=== PATIENT | male | born 2000 | race African-American/Black ===

== ENCOUNTER 2021-08-25 12:06 | Observation (INO) ==
[2021-08-25] MEDS ORDERED: KETOROLAC 30 MG/1 ML VIAL IV STA (14:29)
[2021-08-25 14:35] LABS: Basophils % 0.4 % (0.0-0.8); Eosinophils # 0.2 10*3/uL (0.0-0.87); Eosinophils % 2.8 % (0.00-10.9); Hematocrit 48.7 VOL% (42.0-52.0); Hemoglobin 15.6 GM/DL (14.0-18.0); Immature Granulocytes % 0.3 %; Immature Granulocytes Absolute 0.02 #; Lymphocytes # 1.9 10*3/uL (1.4-4.0); Lymphocytes % 26.9 % (21.2-54.2); Mean Corpuscular Volume 85.9 FL (87-102); Mean Platelet Volume 10.4 FL (9.6-12.0); Monocytes % 6.2 % (1.7-12.7); Neutrophils % 63.4 % (38.7-73.9); Platelet Count 223 T/CUMM (130-400); Red Blood Count 5.67 MC/CUMM (3.8-5.5); Red Cell Distribution Width 13.9 % (9.3-17.3); White Blood Count 7.2 T/CUMM (4-12)
[2021-08-25 15:00] LABS: Albumin 4.3 G/DL (3.4-5.0); Bilirubin,Total 0.4 MG/DL (0.20-1.00); Calcium 9.7 MG/DL (8.5-10.1); Osmolality,Calculated 270.1 MOS/KG (273-304); Potassium 3.8 MMOL/L (3.5-5.1); Total Protein 9.2 G/DL (6.4-8.2)
[2021-08-25 15:41] LABS: Sedimentation Rate-Westergren 12 MM/HR (0-15)
[2021-08-25] MEDS ORDERED: ACETAMINOPHEN 325 MG TABLET PO PRN (16:02)
[2021-08-25] MEDS ORDERED: ONDANSETRON 4 MG/2 ML VIAL IV PRN (16:02)
[2021-08-25] MEDS ORDERED: VANCOMYCIN INJ 1,250 MG in SODIUM CHLORIDE 0.9% 500 ML IV SCH (16:30)
[2021-08-25] MEDS: PIPERACILLIN/TAZOBACTAM 3,375 MG in SODIUM CHLORIDE 0.9% 100 ML IV SCH (17:37)
[2021-08-25] MEDS: PANTOPRAZOLE 40 MG TABLET PO SCH (20:27)
[2021-08-25] MEDS: VANCOMYCIN INJ 1,250 MG in SODIUM CHLORIDE 0.9% 250 ML IV SCH (21:39)
[2021-08-25] MEDS: KETOROLAC 30 MG/1 ML VIAL IV PRN (23:25)
[2021-08-26] MEDS: PIPERACILLIN/TAZOBACTAM 3,375 MG in SODIUM CHLORIDE 0.9% 100 ML IV SCH ×3 (00:44→18:29)
[2021-08-26] MEDS: KETOROLAC 30 MG/1 ML VIAL IV PRN (08:10)
[2021-08-26] MEDS: PANTOPRAZOLE 40 MG TABLET PO SCH (08:30)
[2021-08-26] MEDS ORDERED: LIDOCAINE 2% 5 ML VIAL ONE (08:46)
[2021-08-26] MEDS ORDERED: DEXMEDETOMIDINE 200 MCG/2 ML VIAL ONE (08:46)
[2021-08-26] MEDS ORDERED: SEVOFLURANE 1 UNIT/15 MINUTE INH ONE (08:46)
[2021-08-26] MEDS ORDERED: propofoL 200 MG/20 ML VIAL IV ONE (08:46)
[2021-08-26] MEDS ORDERED: fentaNYL 100 MCG/2 ML VIAL ONE (08:46)
[2021-08-26] MEDS ORDERED: ACETAMINOPHEN INJ 1,000 MG/100 ML VIAL IV ONE (08:47)
[2021-08-26] MEDS ORDERED: LACTATED RINGERS 1,000 ML IV ONE (08:54)
[2021-08-26] MEDS ORDERED: GLYCOPYRROLATE 0.4 MG/2 ML VIAL ONE (09:50)
[2021-08-26] MEDS ORDERED: ONDANSETRON 4 MG/2 ML VIAL ONE (10:17)
[2021-08-26] MEDS: VANCOMYCIN INJ 1,250 MG in SODIUM CHLORIDE 0.9% 250 ML IV SCH ×2 (12:00→22:08)
[2021-08-27] MEDS: PIPERACILLIN/TAZOBACTAM 3,375 MG in SODIUM CHLORIDE 0.9% 100 ML IV SCH ×2 (00:43→09:30)
[2021-08-27] MEDS: KETOROLAC 30 MG/1 ML VIAL IV PRN (01:40)
[2021-08-27 07:45] VITALS: BP 109/74
[2021-08-27] MEDS: PANTOPRAZOLE 40 MG TABLET PO SCH (08:13)
[2021-08-27] MEDS: VANCOMYCIN INJ 1,250 MG in SODIUM CHLORIDE 0.9% 250 ML IV SCH (08:14)
[2021-08-27] MEDS ORDERED: AMOXICILLIN/CLAV 875 MG TABLET PO SCH (10:00)
== END 2021-08-27 10:40 | disposition home or self-care (01) ==
LOC: N.EDINP 12:06 → N.ED 12:06 → N.3E 17:47
PROVIDERS: ADMIT Surgery; ATTEND Surgery